=== PATIENT | female | born 1950 | race Caucasian/White ===

== ENCOUNTER 2017-11-12 17:26 | Emergency (ER) | payer OTHER ==
[~2017-11-12] VITALS: Ht 157.5 cm; Wt 83.5 kg
[~2017-11-12 17:26] MED LIST: ALTACE10 M1 PO; AVANDAMET 4 MG/1 TAB PO
== END 2017-11-12 21:35 | disposition home or self-care (01) ==
LOC: ER 17:26
DX: H11.32 Conjunctival hemorrhage, left eye (principal); I10 Essential (primary) hypertension

== ENCOUNTER 2019-05-02 05:10 | Day surgery (SDC) | payer OTHER ==
[~2019-05-02 05:10] MED LIST changes: +ATORVASTATIN CA10 MG PO; +COZAAR100 MG PO; +GLIMEPIRIDE4 MG PO; +HUMALOG KW100 UNIT/1; +LANTUS SOL100 UNIT/1; +NORVASC5 MG PO
== END 2019-05-02 11:33 | disposition home or self-care (01) ==
LOC: CIR.AMB 05:10
DX: N84.0 Polyp of corpus uteri (principal)

== ENCOUNTER 2025-04-15 13:06 | Emergency (ER) | payer OTHER ==
[~2025-04-15] VITALS: Ht 157.5 cm; Wt 69.9 kg
[2025-04-15] MEDS ORDERED: LABETALOL HCL 100 MG/20 ML ML IV ONE (14:30)
[2025-04-15] MEDS ORDERED: FAMOTIDINE/PF 20 MG/2 ML VIAL IV ONE (14:45)
[2025-04-15] MEDS ORDERED: 0.9 % SODIUM CHLORIDE 1,000 ML IV ONE (14:45)
[2025-04-15] MEDS ORDERED: ORPHENADRINE CITRATE 30 MG/ML AMPUL IV ONE (14:45)
[2025-04-15] MEDS ORDERED: ORPHENADRINE CITRATE 30 MG/ML AMPUL ONE ×2 (16:56→19:31)
[2025-04-15] MEDS ORDERED: LABETALOL HCL 100 MG/20 ML ML ONE (16:57)
[2025-04-15] MEDS ORDERED: FAMOTIDINE/PF 20 MG/2 ML VIAL ONE (16:58)
[2025-04-15 17:02] LABS: BASO % 0.8 % (0.1-1.2); EOS # 0.05 (0.04-0.54); EOS % 0.7 % (0.7-7.0); LYMPH # 2.78 (1.18-3.74); LYMPH % 39.1 % (19.3-53.1); MEAN PLATELET VOLUME 9.40 fl (9.4-12.4); MONO # 0.53 (0.24-0.82); MONO % 7.5 % (4.7-12.5); NEUT # 3.69 (1.56-6.13); NEUT % 51.9 % (34.0-71.1); RED CELL DISTRIBUTION WIDTH 11.8 % (11.6-14.4)
[2025-04-15 18:12] LABS: ALT/SGPT 39.0 U/L (12-78); AST/SGOT 25.0 U/L (15-37); BILIRUBIN TOTAL 0.77 mg/dL (0.3-1.2); BUN CREA RATIO 28.0 (7.0-25.0); CREATININE SERUM 0.72 mg/dL (0.55-1.02); GFR 78.96; GLOBULINA 3.7 G/DL (2.4-3.5); GLUCOSE FASTING 146.0 mg/dL (65-100); OSMOLALITY SERUM 279.0 MOSM/KG (275-295)
[2025-04-15 19:36] LABS: URINE APPEARANCE Clear; URINE BILIRRUBIN Negative (NEGATIVE); URINE BLOOD Negative; URINE COLOR Yellow; URINE GLUCOSE Negative (NEGATIVE); URINE KETONE Trace (NEGATIVE); URINE LEUKOCYTE Negative; URINE NITRATE Positive; URINE PROTEIN Negative (NEGATIVE); URINE UROBILINOGEN 0.2 E.U./dl
[2025-04-15 19:39] LABS: URINE EPITHELIAL CELLS 5.0 uL (0.0-38.8); URINE WBC 9.5 uL (0.0-23.2)
[2025-04-15 20:34] LABS: URINE BACTERIA > 9821.5 uL (0.0-1933); URINE CAST 0.00 uL (0.0-1.40); URINE RBC 1.0 uL (0.0-20.8)
[2025-04-15] MEDS ORDERED: MACROBID 100 M100 MG PO (20:57)
[2025-04-15] MEDS ORDERED: NORFLEX100MG PO (21:28)
== END 2025-04-15 22:05 ==
LOC: ER 13:06
PROVIDERS: General Practice
DX: N39.0 Urinary tract infection, site not specified (principal); R10.32 Left lower quadrant pain; Z88.8 Allergy status to other drugs, medicaments and biological substances; M54.9 Dorsalgia, unspecified; R35.0 Frequency of micturition; I10 Essential (primary) hypertension; E78.49 Other hyperlipidemia; M85.88 Other specified disorders of bone density and structure, other site; M50.20 Other cervical disc displacement, unspecified cervical region
CPT/HCPCS: 36415; 72100; 74176; 96365; 96366; 99284; J2360; J3490; J7030